=== PATIENT | female | born 1940 | race Caucasian/White ===

== ENCOUNTER → 2023-08-10 15:39 | Outpatient (REF) | payer OTHER, SELFPAY | LOC: PAVMRI 15:39 | PROVIDERS: ATTENDING PHYSICIAN Student in an Organized Health Care Education/Training Program; FAMILY PHYSICIAN Nurse Practitioner Adult Health | DX: R41.3 Other amnesia (principal) | CPT/HCPCS: 70551 ==

== ENCOUNTER 2023-10-06 06:10 | Outpatient (RCR) | payer OTHER, SELFPAY | END 2023-10-06 23:59 | disposition home or self-care (01) | LOC: RST 06:10 | PROVIDERS: ATTENDING PHYSICIAN Psychiatry & Neurology Neurology; FAMILY PHYSICIAN Nurse Practitioner Adult Health | DX: I69.318 Other symptoms and signs involving cognitive functions following cerebral infarction (principal) | CPT/HCPCS: 96125 ==

== ENCOUNTER 2024-01-09 14:05 | Observation (INO) | payer OTHER, SELFPAY ==
[2024-01-09] VITALS (10 sets, daily range): BP systolic 141–162; BP diastolic 45–91; BMI 28.7; BMI 28.4
--- NOTE | 2024-01-09 10:13 | ED.MUSCINJ ---
HPI-Injury
General
Chief Complaint: Musculo-Skeletal Complaint
Time Seen by Provider: 01/09/24 09:26
History of Present Illness-Injury
Initial Injury comments:
Patient presents the emergency department for left knee pain. Twisted while moving a mattress last night. Went to sleep and after waking up today she was unable to stand. Complains of severe pain in the left knee and swelling. There is no
injuries elsewhere. Patient is typically ambulatory without any assistance. She is unable to ambulate
Past History
Past History
ED Past Medical History: HTN and NIDDM
ED Past Surgical History: None
Social History
Personal:
Living: with family
Phy Exam
Physical Exam
Physical Exam:
GENERAL APPEARANCE: NAD, well developed/ well nourished
EYES lids/conjunctiva normal
EARS/NOSE/THROAT Mucous membranes moist, uvula midline without oral pharyngeal erythema, exudate or swelling
HEAD/NECK normocephalic atraumatic, neck is supple.
RESPIRATORY respiratory effort normal, speaks in full sentences, no accessory muscle use. Lungs clear to auscultation without rhonchi, wheezes, rales
CARDIAC Regular rate and rhythm, no edema.
ABDOMINAL Soft, ND/NT.
MUSCLES/EXTREMITIES there is diffuse swelling around the left knee. She has limited range of motion secondary to pain. She is able to straight leg raise slightly. She has full strength in plantar and dorsiflexion. There is a joint effusion.
Francisca testing is negative drawer testing negative.
SKIN Warm, pink and dry. No rashes
NEUROLOGICAL Speech is clear and appropriate. Normal level of consciousness. 5/5 strength in all extremities.
PSYCH Normal mood and affect. Judgement/competence is appropriate
Injury Course
Orders/Labs/Results
Orders:
Orders
01/09/24 10:07
IV Insert/Care/Rem.- Treatment PRN
CR Knee - Left 4 Or More View* Urgent
Comment:
Reason For Exam: pain, swelling, unable to bear wt on knee.
01/09/24 10:12
Acetaminophen [Tylenol] 1,000 mg PO NOW STA
Ondansetron Injectable [Zofran] 4 mg IV NOW STA
01/09/24 10:16
Complete Blood Count/With Diff Urgent
Comprehensive Metabolic Panel Urgent
01/09/24 13:44
Admit/Transfer Patient As Directed
Co-Sign Provider:
Level of Care: Observation services
Assign to:: Medical/Surgical
Physician / Group: morelia
Diagnosis: left knee swelling
PRN Pain Medication Management As Directed
May give lesser potent ordered pain med per pt: Yes
preference::
Protocol:: Medication orders for pain may be administered in a
manner that supports deferring to patient preference
when the pt is:
- Requesting an ordered lesser potent pain medication.
Least to most potent pain medications are defined
as: acetaminophen < NSAID < tramadol < opioids
(morphine, oxycodone, hydromorphone).
- Requesting a lesser dose of the same medication IF
ORDERED.
- Requesting a less intrusive route of administration
if both routes are prescribed by the provider (PO <
IV).
01/09/24 13:45
Code Status As Directed
Resuscitation Status: Full Code
01/09/24 Dinner
Regular
At Your Request: Full Participation
01/09/24 15:13
Acetaminophen [Tylenol] 650 mg PO Q4HPRN PRN
Tramadol HCl [Ultram] 50 mg PO Q6HPRN PRN
01/09/24 15:13
MR Left Knee Without Routine
Comment:
Reason For Exam: fall, knee swelling on pradaxa
Recent pill cam endoscopy?: No
Activity As Directed
Activity Level: As Tolerated
Pneumatic Compression Sleeves As Directed
Type: Knee high
Vital Signs As Directed
Frequency: Per unit guidelines
Ot Eval And Treat Routine
Pt Eval And Treat Routine
Activity Level: As Tolerated
DX Deep Vein Thrombosis Video Routine
01/09/24 18:00
Atorvastatin [Lipitor] 20 mg PO QPM
01/09/24 20:00
GlipiZIDE [Glucotrol] 2.5 mg PO BID
01/10/24 06:00
Complete Blood Count/With Diff IN AM
Comprehensive Metabolic Panel IN AM
01/10/24 08:00
Duloxetine Delayed Release [Cymbalta Delayed Release] 30 mg PO DAILY
Multivitamin [Theragran] 0.5 tablet PO DAILY
Abnormal Lab Results
01/09/24
10:16
WBC 13.8 H 10^3/uL
(4.8-10.8)
MPV 11.2 H fL
(7.4-10.4)
Abs Immat Gran (auto) 0.1 H 10^3/uL
(0-0.05)
Absolute Neuts (auto) 11.3 H 10^3/uL
(1.4-6.5)
Absolute Monos (auto) 1.2 H 10^3/uL
(0.1-0.6)
Neutrophils % 81.3 H %
(42.2-75.2)
Lymphocytes % 8.4 L %
(20.5-51.1)
Glucose 238 H mg/dl
(70-99)
Total Bilirubin 1.5 H mg/dl
(0.2-1.3)
AST 48 H U/L
(14-36)
ALT 41 H U/L
(0-35)
01/09/24 10:16
01/09/24 10:16
*Critical Care Note
Total Time (30-74mins, 75-104mins- exclusive of procedures): Not Applicable
ED Attending Note
ED Attending Note
ED Attending Note:
twisting injury to L knee
vascularly intact, limited motor exam with pain
no gross instability
knee is very swollen and painful with any range of motion
prelim xray negative, awaiting final read
regardless, she is unable to ambulate, will need pain control, PT, possible placement to rehab
-
Portions of this chart may have been created with voice recognition software.� Occasional wrong word or��sound alike� substitutions may have occurred due to the inherent limitations of voice recognition software.
Discharge Plan
Departure
Patient Disposition: Admit
Date of Disposition: 01/09/24
Time of Disposition: 13:27
Presentation/result/management discussed w/ accepting MD/DO: Hospitalist
Discharge Problem:
Acute knee pain
Interventions
Interventions:
*Risk Screen - Suicide Last Done: 01/09/24 09:31
*General Assessment Last Done: 01/09/24 09:31
*Neglect/Abuse Screening Last Done: 01/09/24 09:31
ED- Fall Risk Assessment Last Done: 01/09/24 10:29
*ED COVID-19 Vaccine History Last Done: 01/09/24 09:31
*Nursing Disposition Last Done: 01/09/24 15:10
ED-Musculoskeletal Assessment Last Done: 01/09/24 10:28
Discharge Date and Time
Discharge Date/Time: 01/09/24 15:10
[2024-01-09] MEDS: TYLENOL 1000 MG PO (10:21)
[2024-01-09] MEDS: ZOFRAN 4 MG IV (10:22)
[2024-01-09 10:28] LABS: % Basophils 0.8 % (0-2); % Eosinophils 0.6 % (0-6); % Immature Granulocytes 0.4 % (0-0.5); % Lymphocytes 8.4 % (20.5-51.1); % Monocytes 8.5 % (1.7-9.3); % Neutrophils 81.3 % (42.2-75.2); Absolute Basophils 0.1 10^3/uL (0-0.2); Absolute Eosinophils 0.1 10^3/uL (0-0.7); Absolute Immature Granulocytes 0.1 10^3/uL (0-0.05); Absolute Lymphocytes 1.2 10^3/uL (1.2-3.4); Absolute Monocytes 1.2 10^3/uL (0.1-0.6); Absolute Neutrophils 11.3 10^3/uL (1.4-6.5); Hematocrit 44.8 % (37.0-47.0); Hemoglobin 15.6 g/dL (12.0-16.0); Mean Corp Hgb Conc. 34.8 g/dL (33.0-37.0); Mean Corpuscular Hgb 30.9 pg (27.0-31.0); Mean Corpuscular Volume 88.7 fL (81.0-99.0); Mean Platelet Volume 11.2 fL (7.4-10.4); Nucleated Red Blood Cells % 0 %; Platelet Count 167 10^3/uL (130-400); Red Blood Cell Count 5.05 10^6/uL (4.20-5.40); Red Cell Dist. Width 12.9 % (11.5-14.5); White Blood Cell Count 13.8 10^3/uL (4.8-10.8)
[2024-01-09 10:46] LABS: ALT (SGPT) 41 U/L (0-35); AST (SGOT) 48 U/L (14-36); Albumin 4.1 g/dl (3.5-5.0); Alkaline Phosphatase 99 U/L (38-126); Blood Urea Nitrogen 13 mg/dl (7-17); Calcium 9.4 mg/dl (8.4-10.2); Carbon Dioxide 27 mmol/L (22-30); Chloride 101 mmol/L (98-107); Estimated Creatinine Clearance 57 ml/min; Glucose 238 mg/dl (70-99); Potassium 3.6 mmol/L (3.5-5.1); Sodium 140 mmol/L (135-145); Total Bilirubin 1.5 mg/dl (0.2-1.3); Total Protein 6.7 g/dl (6.3-8.2); eGFR > 60.00
--- NOTE | 2024-01-09 12:40 | EDRN ---
Dr. Randolph pt not to eat prior to getting the radiologist xray reading on her knee. Pt was informed.
--- NOTE | 2024-01-09 13:33 | EDRN ---
Pt states her knee pain is unchanged and she does not w/ that pain believe she can walk.
--- NOTE | 2024-01-09 13:36 | EDRN ---
Dr. Samayoa in room w/ pt at this time.
--- NOTE | 2024-01-09 13:48 | HPS.HSE ---
Family Physician
-
Family Physician: Aisha Alcantar
Chief Complaint
-
left knee swelling
History of Present Illness
83-year-old female past medical history of paroxysmal atrial fibrillation, obstructive sleep apnea, CVA, hypertension, type 2 diabetes, anxiety/depression, presenting with left knee pain. She twisted her leg while moving a mattress last night. She
went to sleep and after waking up today she was unable to stand. Complains of severe pain in the left knee with swelling.
Patient does not smoke or drink alcohol.
Medical History
Past Medical History
Past Medical History: Reports Other (paroxysmal atrial fibrillation, obstructive sleep apnea, CVA, hypertension, type 2 diabetes, anxiety/depression)
Past Surgical History: Reports None
Social History
Tobacco: Non-smoker
Alcohol: None
Family History
Family History: Not pertinent
Allergies / Home Medications
Allergies reflects when Allergies were last updated in [facility].
Home Medications with original date entered in [facility]
Allergy/Medication List:
Allergies
Allergy/AdvReac Type Severity Reaction Status Date / Time
No Known Allergies Allergy Unverified 01/09/24 10:30
Home Medications
multivitamin 0.5 ea PO DAILY 03/29/21
atorvastatin 20 mg tablet 20 mg PO QPM 01/09/24
dabigatran etexilate 150 mg capsule (Pradaxa) 150 mg PO BID 01/09/24
duloxetine 30 mg capsule,delayed release 30 mg PO DAILY 01/09/24
glipizide 5 mg tablet 2.5 mg PO BID 01/09/24
Review of Systems
-
History Source: Patient
A 12 point ROS was completed and negative except as noted: Yes
Constitutional: Reports No Symptoms
EENT: Reports No Symptoms
Respiratory: Reports No Symptoms
Cardiac: Reports No Symptoms
Abdomen/GI: Reports No Symptoms
: Reports No Symptoms
Musculoskeletal: Reports See HPI
Skin: Reports No Symptoms
Neurological: Reports No Symptoms
Endocrine: Reports No Symptoms
Hematologic/Lymphatic: Reports No Symptoms
Psych: Reports No Symptoms
Physical Exam
Vital Signs
Vital Signs
Temp Pulse Resp BP Pulse Ox
98.1 F 84 16 141/65 94
01/09/24 09:34 01/09/24 13:00 01/09/24 13:00 01/09/24 13:00 01/09/24 13:00
Physical Exam
General: Well Developed, Well Nourished and No Apparent Distress
HEENT: NormoCephalic, Moist mucous membranes and Atraumatic
Respiratory: Clear
Cardiac: S1/S2 and Regular Rhythm; No Murmur or Rub
GI: Soft, Non Tender, Non Distended and Normal Bowel Sounds; No Organomegaly
Rectal: Deferred by Provider
Musculoskeletal: No Clubbing, No Cyanosis, No Edema and Other (left knee swelling and tenderness )
Skin: No Rash
Neuro: Nonfocal/grossly intact
Laboratory Results
-
01/09/24 10:16
01/09/24 10:16
Laboratory Results
Total Bilirubin 1.5 mg/dl (0.2-1.3) H 01/09/24 10:16
AST 48 U/L (14-36) H 01/09/24 10:16
ALT 41 U/L (0-35) H 01/09/24 10:16
Alkaline Phosphatase 99 U/L (38-126) 01/09/24 10:16
Data Reviewed
-
Lab Data: Labs Reviewed by me
Old Records: Reviewed
Impression/Plan
-
IMPRESSION:
PLAN:
# Left knee swelling/pain after fall most likely knee sprain versus meniscal/ligament tear versus hematoma given Pradaxa use
-Knee x-ray pending
-Tylenol, tramadol as needed for pain
-Will likely require MRI of knee depending on x-ray result
-PT/OT
-Hold Pradaxa for now given potential for hematoma
Paroxysmal atrial fibrillation
-Continue Pradaxa
Obstructive sleep apnea
History of CVA
-Continue statin
Essential hypertension
Type 2 diabetes
-Continue glipizide
Anxiety/depression
-Continue duloxetine
Full code
DVT prophylaxis�SCDs
Regular diet
--- NOTE | 2024-01-09 15:25 | PTCARENOTE ---
Received pt from ED via stretcher. Pt pulled over to bed with assist x3. Pt c/o pain throughout L knee when reposition, expresses no need for pain medication at this time. AAOX3. MINTO. Family at beside. Assessed and oriented to room. Pt verbalized
understanding of call gonzalez. Call gonzalez within close reach. Will continue to monitor.
[2024-01-09] MEDS: LIPITOR 20 MG PO (17:21)
[2024-01-09] MEDS: TYLENOL 650 MG PO (17:21)
[2024-01-09] MEDS: GLUCOTROL 2.5 MG PO (20:59)
[2024-01-10] MEDS: TYLENOL 650 MG PO (02:32)
[2024-01-10 07:39] LABS: % Basophils 0.7 % (0-2); % Eosinophils 0.4 % (0-6); % Immature Granulocytes 0.5 % (0-0.5); % Lymphocytes 9.1 % (20.5-51.1); % Monocytes 14.9 % (1.7-9.3); % Neutrophils 74.4 % (42.2-75.2); Absolute Basophils 0.1 10^3/uL (0-0.2); Absolute Eosinophils 0.1 10^3/uL (0-0.7); Absolute Immature Granulocytes 0.1 10^3/uL (0-0.05); Absolute Lymphocytes 1.1 10^3/uL (1.2-3.4); Absolute Monocytes 1.8 10^3/uL (0.1-0.6); Absolute Neutrophils 9.1 10^3/uL (1.4-6.5); Hematocrit 45.1 % (37.0-47.0); Hemoglobin 14.8 g/dL (12.0-16.0); Mean Corp Hgb Conc. 32.8 g/dL (33.0-37.0); Mean Corpuscular Hgb 30.3 pg (27.0-31.0); Mean Corpuscular Volume 92.2 fL (81.0-99.0); Mean Platelet Volume 11.2 fL (7.4-10.4); Nucleated Red Blood Cells % 0 %; Platelet Count 163 10^3/uL (130-400); Red Blood Cell Count 4.89 10^6/uL (4.20-5.40); White Blood Cell Count 12.2 10^3/uL (4.8-10.8)
[2024-01-10 07:45] VITALS: BP 172/86
[2024-01-10 07:49] LABS: ALT (SGPT) 47 U/L (0-35); AST (SGOT) 50 U/L (14-36); Albumin 3.8 g/dl (3.5-5.0); Alkaline Phosphatase 86 U/L (38-126); Blood Urea Nitrogen 14 mg/dl (7-17); Calcium 9.2 mg/dl (8.4-10.2); Carbon Dioxide 32 mmol/L (22-30); Chloride 99 mmol/L (98-107); Estimated Creatinine Clearance 57 ml/min; Glucose 264 mg/dl (70-99); Potassium 3.5 mmol/L (3.5-5.1); Sodium 139 mmol/L (135-145); Total Bilirubin 1.9 mg/dl (0.2-1.3); Total Protein 6.4 g/dl (6.3-8.2); eGFR > 60.00
[2024-01-10] MEDS: THERAGRAN 0.5 TABLET PO (08:41)
[2024-01-10] MEDS: GLUCOTROL 2.5 MG PO (08:41)
[2024-01-10] MEDS: ULTRAM 50 MG PO ×2 (08:41→22:21)
[2024-01-10] MEDS: CYMBALTA DELAYED RELEASE 30 MG PO (08:44)
--- NOTE | 2024-01-10 09:26 | W.PN.HOSP.TC ---
Today's Communication/Plan
-
ortho consult
Assessment / Plan
Assessment / Plan
# Left knee swelling/pain after fall/twist injury most likely knee sprain versus meniscal/ligament tear versus hematoma given Pradaxa use
-Knee x-ray: Moderate medial compartment and mild patellofemoral joint osteoarthritis.
No acute fracture identified.
Bony demineralization. Stable
-Tylenol, tramadol as needed for pain
-Will require MRI of knee
ordered and is pending
-PT/OT
pt is in considerable pain, will request ortho eval, discussed case with Dr. Rico
-Hold Pradaxa for now given potential for hematoma
Paroxysmal atrial fibrillation
-holding Pradaxa
Obstructive sleep apnea
History of CVA
-Continue statin
Essential hypertension
Type 2 diabetes
-Continue glipizide
Anxiety/depression
-Continue duloxetine
Full code
DVT prophylaxis�SCDs
Regular diet
Pt resides at [facility], will need to contact CM once dx and plans put in place
Anticipated Discharge: 24 - 48 hours
Subjective/Interval History
-
Date of Service: January 10, 2024
Still with significant left knee pain
Objective Data
-
Labs:
Laboratory Results
01/10/24
07:02
WBC 12.2 H
Hgb 14.8
Hct 45.1
Plt Count 163
Sodium 139
Potassium 3.5
Chloride 99
Carbon Dioxide 32 H
BUN 14
Creatinine 0.7
Glucose 264 H
Calcium 9.2
Total Bilirubin 1.9 H
AST 50 H
ALT 47 H
Alkaline Phosphatase 86
Vital Signs:
Vital Signs
Temp Pulse Resp BP Pulse Ox
97.7 F 83 18 172/86 93
01/10/24 07:45 01/10/24 07:45 01/10/24 07:45 01/10/24 07:45 01/10/24 07:45
I&O
01/09/24 01/10/24 01/11/24
06:59 06:59 06:59
Intake Total 480 / 480
Balance 480 / 480
Review of Systems
-
Unable to obtain full review of systems at this time due to: Dementia (mild)
History Source: Patient and Coordinated Provider
Constitutional: Denies Fever
EENT: Reports No Symptoms Reported
Respiratory: Reports No Symptoms
Cardiac: Reports No Symptoms
Abdomen/GI: Reports No Symptoms
Musculoskeletal: Reports Joint Pain (left knee) and Joint Swelling
Physical Exam
-
General: Well Developed, Well Nourished, No Apparent Distress and Appears Chronically Ill
HEENT: Normocephalic, Atraumatic and Moist Mucous Membranes
Respiratory: Clear to Auscultation; Negative Wheezes, Rales or Rhonchi
Cardiac: Regular Rhythm and S1/S2
GI: Soft, Nontender and Nondistended
Musculoskeletal: Other (left knee swollen, warm and very tender)
Neuro: Awake and Alert
--- NOTE | 2024-01-10 10:37 | CON.ORTHO ---
Consultation - Orthopedics
History
HPI: 83-year-old female community ambulator presented to the emergency department status post twisting injury to the left knee. She was admitted for ambulatory dysfunction. Orthopedics was consulted for further evaluation and treatment. This
morning family is at bedside. She reports that she was changing her sheets in her room when she twisted her knee on Thursday. She noted some pain at that time that progressively worsened the following day. She reports that Thursday she woke up and
had significant pain and swelling and really was unable to bear weight. She called her daughter who brought her to the emergency department. Today patient reports diffuse pain to the left knee. Pain is made worse with direct palpation at affected
area and with attempted ambulation. She reports that she does live independently in an independent living facility. She does take Pradaxa for A-fib. She reports that she had a stroke 3 years ago.
Allergies / Home Medications
Past medical history: A-fib, obstructive sleep apnea, CVA, hypertension, type 2 diabetes
Past surgical history: None reported
Social history: Lives alone at home, non-smoker
Family history: Not pertinent
Allergy/AdvReac Type Severity Reaction Status Date / Time
No Known Allergies Allergy Unverified 01/09/24 10:30
�Medication �Instructions �Recorded
multivitamin 0.5 ea PO DAILY Supplement 03/29/21
atorvastatin 20 mg tablet 20 mg PO QPM High Cholesterol 01/09/24
dabigatran etexilate 150 mg 150 mg PO BID Blood Clot 01/09/24
capsule (Pradaxa) Prevention/Tx
duloxetine 30 mg capsule,delayed 30 mg PO DAILY Mental 01/09/24
release Health/Anxiety
glipizide 5 mg tablet 2.5 mg PO BID Diabetes 01/09/24
Vital Signs / Lab Results
Temp Pulse Resp BP Pulse Ox
97.7 F 83 18 172/86 93
01/10/24 07:45 01/10/24 07:45 01/10/24 07:45 01/10/24 07:45 01/10/24 07:45
01/10/24 07:02
01/10/24 07:02
10 point review systems reviewed and negative unless otherwise stated
General: Pleasant, no acute distress at rest while in bed
Musculoskeletal left lower extremity
Skin intact, no erythema or ecchymotic staining noted
There is a large palpable knee effusion
Limited range of motion secondary to pain and swelling
Fairly mild tenderness palpation suprapatellar region medial lateral joint line
There is no discrete tenderness palpation popliteal fossa hamstring tendon insertions
Positive EHL, FHL, ankle dorsiflexion, plantarflexion
Brisk cap refill
Diagnostic studies
X-rays left knee obtained show fairly moderate medial joint space narrowing more mild patellofemoral joint space narrowing. No fractures identified.
Procedure
Left knee aspiration
Risks and benefits of procedure were discussed at length with patient verbal consent was obtained. Utilizing superolateral approach to the knee, skin was marked include alcohol. An 18-gauge needle was then inserted into the suprapatellar pouch.
Approximately 50 cc of essentially bri blood/hemarthrosis was aspirated. Band-Aid was applied. Patient's knee was wrapped with Damien bandage. Patient tolerated procedure well.
Assessment / Plan
83-year-old female status post twisting injury left knee with associated hemarthrosis. I had a long discussion with the patient as well as family at bedside. I do suspect this is likely related to her Pradaxa use more of an spontaneous
hemarthrosis type picture. Certainly she could have other potential acute internal derangement of the knee potentially also a small intra-articular fracture not visualized on x-ray. We discussed treatment options. Explained to them that fluid
may reaccumulate but this did provide us with some diagnostic value. There are plans obtain an MRI of the left knee. Will plan to follow-up MRI. I think really the only change in recommendations for an MRI would potentially be changing
weightbearing status if there is a fracture identified. Otherwise would recommend compression ice and elevation.. Could consider bracing as well for additional support to aid in ambulation. Will follow up MRI. Please reach out with questions or
concerns.
--- NOTE | 2024-01-10 10:45 | CM ---
CM following re: discharge planning.
Reviewed pt's chart, met with pt.
Pt is an 83 year old female, admitted with OBS status and primary dx of Left Knee swelling. OBS status reviewed with the pt, GILL letter signed, placed on chart, pt has a copy.
Pt reports he has been living in an independent apartment at [facility] for the past 3 years, has 2 supportive living children, one daughter . Emotional support offered and provided.
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 Pt stated she does not know how she will ambulate now because of her knee.
PT and OT will evaluate the pt to determine a level of care at discharge.
PCP: Aisha Alcantar
Pharmacy: [facility]
D/C plan: uncertain at this time and will depend on pt's progress. Will follow PT/OT recommendations.
CM will follow with discharge plan updates as hospitalization progresses
--- NOTE | 2024-01-10 10:57 | PTCARENOTE ---
Her Bp this am was 172/86 with severe pain. I gave her tramadol and her bp now is 154/85 with moderate pain. Md made aware, with a request for Bp and improved pain management. Also PT's hands appeared slightly blue, warm with excellent pulses. t
pulse ox. she ranged 88-90% so i put her on 2 liters. She has decreased BS and last nurse said she was ROSAIRO with some activity.2 liters of oxygen applied 94-95% on 2 liters. Pt had bedside aspiration 52 ml bloody aspirate. This nurse assisted
ortho surgery with bedside aspiration. Left knee was +2-3 swollen and now is +1, PT is on pradexa at home and is on hold here. Daughere is at bedside
[2024-01-10 11:19] VITALS: BP 154/84
[2024-01-10 12:19] VITALS: BP 139/73
--- NOTE | 2024-01-10 13:56 | PTCARENOTE ---
pt went to MRI. will await her return. MD banuelos
--- NOTE | 2024-01-10 14:06 | PTCARENOTE ---
when transfering pt onto stretcher for MRI oxygen was off and pt mental status slighlty confused and cyanotic appearance came back. lungs coarse in miley lower lobes with LLL expiratory wheeze, pt with systolic murmur, Oxygen reapplied and confusion
and color improved. aware and ordered CXR. PT to go to CXR after MRI. MRI and radiology called and aware.
[2024-01-10 15:30] VITALS: BP 134/72
[2024-01-10] MEDS: LIPITOR 20 MG PO (16:56)
[2024-01-10] MEDS: GLUCOTROL PO (21:28)
[2024-01-10 22:31] VITALS: BP 139/93
[2024-01-11 06:00] VITALS: BMI 28.3
[2024-01-11 07:30] VITALS: BP 131/66
[2024-01-11] MEDS: THERAGRAN 0.5 TABLET PO (08:17)
[2024-01-11] MEDS: GLUCOTROL 2.5 MG PO ×2 (08:17→19:55)
[2024-01-11] MEDS: CYMBALTA DELAYED RELEASE 30 MG PO (08:18)
[2024-01-11 10:38] VITALS: BP 131/61; BP 145/81; PULSE 75; O2SAT 96
[2024-01-11 10:41] VITALS: BP 131/61; BP 135/81; PULSE 75; O2SAT 96
[2024-01-11] MEDS: TYLENOL 650 MG PO (11:32)
--- NOTE | 2024-01-11 11:32 | W.PN.HOSP.TC ---
Today's Communication/Plan
-
await placement
pain control
Assessment / Plan
Assessment / Plan
# Left knee swelling/pain after fall/twist injury most likely knee sprain versus meniscal/ligament tear versus hematoma given Pradaxa use
-Knee x-ray: Moderate medial compartment and mild patellofemoral joint osteoarthritis.
No acute fracture identified.
Bony demineralization. Stable
-Tylenol, tramadol as needed for pain
-MRI No evidence for fracture. No significant bone bruise is identified. Muscular strain involving the distal vastus lateralis small linear foci of increased proton-density signal within the distal muscle fibers. There is edema medial to the distal
aspect of the vastus medialis, and is likely from a mild grade 1 muscular strain.
Mild edema along the anterior margin of the medial and lateral heads of the gastrocnemius muscles, which also likely represents mild grade 1 muscular strains. No evidence for medial or lateral meniscal tear. The anterior and posterior cruciate
ligaments appear within normal limits. Moderate to large joint effusion. Irregular decreased T2-weighted signal within the effusion, which could represent synovitis and/or debris. Moderate-sized Liang's cyst. Mild to moderate diffuse subcutaneous
edema.
-s/p arthocentesis-blood noted by orthopedic
-await further orthopedic recs. Discussed with Dr. Zaid Rico who recommended patient to follow-up with her primary furniture inspector to discuss further usage of DOAC. WBAT.
Paroxysmal atrial fibrillation
-holding Pradaxa. Plan as above.
Obstructive sleep apnea
History of CVA
-Continue statin
Essential hypertension
Type 2 diabetes
-Continue glipizide
Anxiety/depression
-Continue duloxetine
Full code
DVT prophylaxis�SCDs
d/w with daughter at bedside in details
PT/OT-SNF vs. Home PT. CM aware.
Anticipated Discharge: Today
Subjective/Interval History
-
Date of Service: January 11, 2024
working with PT
able to bear weight with assistance
Objective Data
-
Vital Signs:
Vital Signs
Temp Pulse Resp BP Pulse Ox
97.6 F 72 18 131/66 96
01/11/24 07:30 01/11/24 07:30 01/11/24 07:30 01/11/24 07:30 01/11/24 07:30
I&O
01/10/24 01/11/24 01/12/24
06:59 06:59 06:59
Intake Total 480 / 480 900 / 900
Balance 480 / 480 900 / 900
Physical Exam
-
General: No Apparent Distress
HEENT: Normocephalic, Atraumatic and Moist Mucous Membranes
Respiratory: Non Labored Respirations; Negative Accessory Resp Muscle Use
GI: Nondistended
Musculoskeletal: Other (Left knee swollen)
Skin: Warm
Neuro: Awake, No Motor Deficits and Nonfocal/Grossly Intact; Negative Tremors, Slurred Speech or Facial Droop
Psych: Calm
--- NOTE | 2024-01-11 12:20 | W.PN.UPDATE ---
Update Note
Progress Note Update
Reviewed MRI. No fractures or significant acute injury identified. Would recommend WBAT to left lower extremity, PT eval, pain control. Likely spontaneous hemarthrosis related to anticoagulation. Can follow up outpatient for repeat eval in 2-3
weeks. Discussed at length with patient and daughter yesterday.
[2024-01-11 16:00] VITALS: BP 127/68
--- NOTE | 2024-01-11 16:48 | CM ---
Addendum entered by MILAGROS Gray 01/14/24 15:37:
Placed a call to [facility] to discuss which VN agencies they can contract with. Spoke with nursing staffing coordinator who stated that as patient is from Independent living she can choose any agency, not just an agency with whom they have a contract. Spoke
with patient and her daughter who stated that they would rather have VN than the two that are offered in the community.
Referral made to VN. Spoke with Candy low for to make referral.
Original Note:
Received notification from attending that patient is medically cleared for discharge. Reviewed PT. Met with patient's daughter who was at bedside. Patient's daughter stated that she will be staying at [facility] with patient in her apartment. She would
also like VN through [place]. Will make referral. She also stated that she will hire private aides. Discussed with attending who is in agreement with plan. Will make VN referral. Attending stated that patient should be medically stable to transfer back
in the am.
Concerns about PT were relayed to patient's daughter and she stated that she was aware of risk but that patient will never be left unsupervised.
Plan: Case management will continue to follow and assist with discharge planning. Home/back to [facility] with her daughter, VN and caregivers until she is closer to baseline.
[2024-01-11] MEDS: LIPITOR 20 MG PO (17:27)
[2024-01-11 23:18] VITALS: BP 133/66
[2024-01-12 06:00] VITALS: BMI 28.6
[2024-01-12 08:04] VITALS: BP 178/77
[2024-01-12] MEDS: CYMBALTA DELAYED RELEASE 30 MG PO (08:31)
[2024-01-12] MEDS: GLUCOTROL 2.5 MG PO (08:31)
[2024-01-12] MEDS: THERAGRAN 0.5 TABLET PO (08:31)
--- NOTE | 2024-01-12 10:39 | W.PN.HOSP.TC ---
Today's Communication/Plan
-
Op ortho f/u
wbat
Assessment / Plan
Assessment / Plan
# Left knee swelling/pain after fall/twist injury most likely knee sprain versus meniscal/ligament tear versus hematoma given Pradaxa use
-Knee x-ray: Moderate medial compartment and mild patellofemoral joint osteoarthritis.
No acute fracture identified.
Bony demineralization. Stable
-Tylenol, tramadol as needed for pain
-MRI No evidence for fracture. No significant bone bruise is identified. Muscular strain involving the distal vastus lateralis small linear foci of increased proton-density signal within the distal muscle fibers. There is edema medial to the distal
aspect of the vastus medialis, and is likely from a mild grade 1 muscular strain.
Mild edema along the anterior margin of the medial and lateral heads of the gastrocnemius muscles, which also likely represents mild grade 1 muscular strains. No evidence for medial or lateral meniscal tear. The anterior and posterior cruciate
ligaments appear within normal limits. Moderate to large joint effusion. Irregular decreased T2-weighted signal within the effusion, which could represent synovitis and/or debris. Moderate-sized Liang's cyst. Mild to moderate diffuse subcutaneous
edema.
-s/p arthocentesis-blood noted by orthopedic
- Discussed with Dr. Zaid Rico who recommended patient to follow-up with her primary repairer helper to discuss further usage of DOAC. WBAT. This was discussed with patient daughter who verbalized understanding to follow-up with cardiology.
Daughter leaning towards stopping DOAC. Daughter understand risk of CVA versus benefit of further progression of hemarthrosis.
Paroxysmal atrial fibrillation
-holding Pradaxa. Plan as above.
Obstructive sleep apnea
History of CVA
-Continue statin
Essential hypertension
Type 2 diabetes
-Continue glipizide
Anxiety/depression
-Continue duloxetine
Full code
DVT prophylaxis�SCDs
d/w with daughter at bedside in details
PT/OT-back to [facility] . Daughter prefers for patient to return to her previous living situation. Daughter to stay with the patient.
More than 30 minutes spent in discharge including
Final examination of the patient
Summarizing hospital stay
Instructions for continuing care to all relevant caregivers
Preparation of discharge records, prescriptions, and referral forms
Total time spent (in minutes): 52
Anticipated Discharge: Today
Subjective/Interval History
-
Date of Service: January 12, 2024
remains with intermittent left knee pain
able to get out of bed
Objective Data
-
Vital Signs:
Vital Signs
Temp Pulse Resp BP Pulse Ox
97.7 F 71 17 178/77 95
01/12/24 08:04 01/12/24 08:04 01/12/24 08:04 01/12/24 08:04 01/12/24 08:04
I&O
01/11/24 01/12/24 01/13/24
06:59 06:59 06:59
Intake Total 900 / 900 1080 / 1080
Balance 900 / 900 1080 / 1080
Physical Exam
-
General: No Apparent Distress
HEENT: Normocephalic, Atraumatic and Moist Mucous Membranes
Respiratory: Non Labored Respirations; Negative Accessory Resp Muscle Use
GI: Nondistended
Musculoskeletal: Other (Left knee swollen)
Skin: Warm
Neuro: Awake, No Motor Deficits and Nonfocal/Grossly Intact; Negative Tremors, Slurred Speech or Facial Droop
Psych: Calm and Confused
--- NOTE | 2024-01-12 10:42 | W.DCSUMMARY ---
Discharge Summary
Discharge Data
Date of Admission: 01/09/24
Date of Discharge: 01/12/24
-
Pending Results: No
Hospital Course
83-year-old female past medical history of atrial fibrillation, DEMETRI, history of CVA, hypertension, diabetes mellitus, anxiety, depression was presented with left knee pain and swelling. Patient stated of significant pain after twisting her left
knee. Underwent left knee x-ray which showed moderate medial compartment and mild patellofemoral joint osteoarthritis. No acute fractures was identified. Patient underwent MRI No evidence for fracture. No significant bone bruise is identified.
Muscular strain involving the distal vastus lateralis small linear foci of increased proton-density signal within the distal muscle fibers. There is edema medial to the distal aspect of the vastus medialis, and is likely from a mild grade 1 muscular
strain. Mild edema along the anterior margin of the medial and lateral heads of the gastrocnemius muscles, which also likely represents mild grade 1 muscular strains. No evidence for medial or lateral meniscal tear. The anterior and posterior
cruciate ligaments appear within normal limits. Moderate to large joint effusion. Irregular decreased T2-weighted signal within the effusion, which could represent synovitis and/or debris. Moderate-sized Liang's cyst. Mild to moderate diffuse
subcutaneous edema. Pradaxa was held as there was concern for hemarthrosis. Patient underwent arthrocentesis by orthopedic where blood was noted. Orthopedic recommend to hold Pradaxa and to follow-up outpatient with cardiology. This was relayed
to patient daughter who verbalized understanding. Patient was eval by physical and Occupational Therapy and recommended skilled level of care. Patient daughter did not want patient to undergo to skilled level of care and recommended return to
previous living situation. Daughter stated patient with confusion when she is in a new environement. Visiting nurses were ordered. Recommended ice pack elevation and weightbearing as tolerated.
Discharge Plan
-
Patient Disposition: Assisted Living
Discharge Diagnosis/Procedures: Hemarthrosis likely exacerbated by Pradaxa status post arthrocentesis
Condition: Fair
Diet: As tolerated
Activity: With assistance and As tolerated
Driving Restrictions: No driving
Other Services: VN
Referrals:
Aisha Alcantar CRNP [Family Provider] - in less than 1 week
Zaid Rico MD [Active] - in two to three weeks
Prescriptions:
New
acetaminophen 325 mg Tablet
650 mg PO Q4HPRN PRN (Reason: mild pain) 14 Days Qty: 30 0RF
tramadol 50 mg Tablet
50 mg PO BIDPRN PRN (Reason: SEVERE PAIN) 3 Days Qty: 6 0RF
Continued
multivitamin 1 EACH tablet
0.5 ea PO DAILY
atorvastatin 20 mg Tablet
20 mg PO QPM
duloxetine 30 mg Capsule,Delayed Release(Dr/Ec)
30 mg PO DAILY
glipizide 5 mg Tablet
2.5 mg PO BID
Held
dabigatran etexilate [Pradaxa] 150 mg Capsule
150 mg PO BID
Hold Instructions: Resume on 02/01/24. Hold till seen by cardiology
Discharge Orders:
Discharge Patient (As Directed); Ordered 01/12/24
Ordered By: Chuy Palomino
Discharge Date and Time
Discharge Date/Time: 01/12/24 13:50
Print Language: LATVIAN
--- NOTE | 2024-01-12 12:31 | VNURNOTE ---
Home Health Liaison spoke with patient's daughter to discuss [facility] nurse/therapy, visits, schedule and homebound status. Daughter is agreeable and understands that visits at home will be 2-3 x per week to assess and teach medical management. Daughter
is aware that [facility] will contact them for start of care in 1-2 days after discharge from .
[facility] referral completed in [facility].
[2024-01-12 12:49] VITALS: BP 149/76; PULSE 68; O2SAT 96
== END 2024-01-12 13:50 | disposition home health service (06) ==
LOC: 3 WEST ACU 14:05
PROVIDERS: ADMITTING PHYSICIAN Hospitalist; ATTENDING PHYSICIAN Hospitalist; CONSULT PHYSICIAN Orthopaedic Surgery; EMERGENCY PHYSICIAN Emergency Medicine; FAMILY PHYSICIAN Nurse Practitioner Adult Health
DX: M25.062 Hemarthrosis, left knee (principal); M25.562 Pain in left knee; M17.12 Unilateral primary osteoarthritis, left knee; M79.89 Other specified soft tissue disorders; I10 Essential (primary) hypertension; E11.9 Type 2 diabetes mellitus without complications; X50.1XXA Overexertion from prolonged static or awkward postures, initial encounter; Y93.E9 Activity, other interior property and clothing maintenance; Y92.003 Bedroom of unspecified non-institutional (private) residence as the place of occurrence of the external cause; I48.0 Paroxysmal atrial fibrillation; F41.9 Anxiety disorder, unspecified; M81.0 Age-related osteoporosis without current pathological fracture; M71.22 Synovial cyst of popliteal space [Baker], left knee; F32.A Depression, unspecified; G47.33 Obstructive sleep apnea (adult) (pediatric); Z86.73 Personal history of transient ischemic attack (TIA), and cerebral infarction without residual deficits; Z79.84 Long term (current) use of oral hypoglycemic drugs; Z79.02 Long term (current) use of antithrombotics/antiplatelets
CPT/HCPCS: 71046; 73564; 73721; 80053; 85025; 96374; 97163; 97167; 97530; 99285; G0378

== ENCOUNTER 2024-02-14 06:58 | Emergency (ER) | payer OTHER, SELFPAY ==
[2024-02-14 07:01] VITALS: BP 156/79
--- NOTE | 2024-02-14 08:39 | ED.GENMED ---
History of Present Illness
General
Chief Complaint: Fall
Time Seen by Provider: 02/14/24 08:17
History of Present Illness
History of Present Illness:
83 yo female with history of A-fib on Pradaxa presents to the emergency department for evaluation after a minor fall. Was attempting to get out of bed to use the her bedside commode, slowly lowered herself to the ground due to left knee pain. Has
an ongoing recurrent hemarthrosis of the left knee that causes difficulty ambulating. She reportedly laid supine for approximately 5 to 6 hours before her daughter was aware of the fall and able to help her up. She is currently complaining of
diffuse pain specifically to the mid back. Denies any head strike or loss of consciousness.
Past History
Past History
ED Past Medical History: HTN and NIDDM
ED Past Surgical History: None
Social History
Personal:
Living: with family
Review of Systems
Review of Systems
Allergies reviewed?: Yes
All Other Systems: ROS reviewed and negative except as documented in HPI and ROS
Phy Exam
Physical Exam
Physical Exam:
GEN: Well appearing, NAD, WDWN
HEENT: Oral mucosa moist, no scleral icterus
Cardiac: Regular rate
Lung: No respiratory distress, no tachypnea
MSK: Midline thoracic spine tenderness diffusely, no paraspinous muscle tenderness. No obvious pressure injuries noted on exam. Moderate to large left knee effusion
Skin: Good color, no pallor or jaundice, no rashes
Neuro: AO x3, moves all extremities freely
Psych: Calm, cooperative
Course
Orders/Labs/Results
Orders:
Orders
02/14/24 07:06
EKG [Electrocardiogram (*1)] Urgent
Reason for Study: Vertigo / Dizzy
02/14/24 07:07
EKG- Treatment ONCE
02/14/24 08:33
CR Thoracic Spine 3 Views Urgent
Comment:
Reason For Exam: fall, mid back pain
02/14/24 09:14
CPK [Creatine Phosphokinase] Urgent
Comprehensive Metabolic Panel Urgent
02/14/24 09:15
Complete Blood Count/With Diff Urgent
02/14/24 09:58
Pt Eval And Treat Urgent
Treatment: L knee hemarthrosis, WBAT
Activity Level: As Tolerated
02/14/24 10:38
Case Management Consult ONCE
Case Management Consult: VN/Home Care
Comment: home PT
Abnormal Lab Results
02/14/24 02/14/24
09:14 09:15
WBC 12.1 H 10^3/uL
(4.8-10.8)
MPV 10.9 H fL
(7.4-10.4)
Absolute Neuts (auto) 9.8 H 10^3/uL
(1.4-6.5)
Absolute Lymphs (auto) 0.9 L 10^3/uL
(1.2-3.4)
Absolute Monos (auto) 1.1 H 10^3/uL
(0.1-0.6)
Neutrophils % 81.5 H %
(42.2-75.2)
Lymphocytes % 7.7 L %
(20.5-51.1)
Monocytes % 9.4 H %
(1.7-9.3)
Glucose 223 H mg/dl
(70-99)
Total Bilirubin 1.6 H mg/dl
(0.2-1.3)
AST 44 H U/L
(14-36)
Total Protein 6.1 L g/dl
(6.3-8.2)
02/14/24 09:15
02/14/24 09:14
Vital Signs
Initial and Last Documented VS:
Initial Vital Signs
Temp Pulse Resp BP Pulse Ox
97.5 F 81 16 156/79 96
02/14/24 07:01 02/14/24 07:01 02/14/24 07:01 02/14/24 07:01 02/14/24 07:01
Last Documented Vital Signs
Temp Pulse Resp BP Pulse Ox
97.5 F 80 20 154/71 96
02/14/24 07:01 02/14/24 12:10 02/14/24 12:10 02/14/24 12:10 02/14/24 12:10
MDM/Problems Addressed
MDM/Problems Addressed:
I did attempt to aspirate the hemarthrosis however despite ultrasound-guided confirmation of intra-articular placement I was unsuccessful aspirating blood likely indicating that it is coagulated. Her workup is reassuring. She was evaluated by
physical therapy and will be referred as an outpatient to in-home physical therapy resources. Her daughter will stay with her at her apartment
*Critical Care Note
Total Time (30-74mins, 75-104mins- exclusive of procedures): Not Applicable
ED Attending Note
-
Portions of this chart may have been created with voice recognition software.� Occasional wrong word or��sound alike� substitutions may have occurred due to the inherent limitations of voice recognition software.
Discharge Plan
Departure
Patient Disposition: Home (Routine Discharge)
Date of Disposition: 02/14/24
Time of Disposition: 10:38
Patient with high blood pressure during this ER visit?: No
Discharge Problem:
Fall, Hemarthrosis of knee, left
Instructions: Preventing falls in adults
Prescriptions:
No Action
multivitamin 1 EACH tablet
0.5 ea PO DAILY
atorvastatin 20 mg Tablet
20 mg PO QPM
duloxetine 30 mg Capsule,Delayed Release(Dr/Ec)
30 mg PO DAILY
dabigatran etexilate [Pradaxa] 150 mg Capsule
150 mg PO BID
glipizide 5 mg Tablet
2.5 mg PO BID
acetaminophen 325 mg Tablet
650 mg PO Q4HPRN PRN (Reason: mild pain) 14 Days Qty: 30 0RF
tramadol 50 mg Tablet
50 mg PO BIDPRN PRN (Reason: SEVERE PAIN) 3 Days Qty: 6 0RF
Referrals:
Aisha Alcantar CRNP [Family Provider] -
Zaid Rico MD [Active] -
Interventions
Interventions:
*Risk Screen - Suicide Last Done: 02/14/24 07:01
*General Assessment Last Done: 02/14/24 07:01
*Neglect/Abuse Screening Last Done: 02/14/24 07:01
*ED COVID-19 Vaccine History Last Done: 02/14/24 07:01
*Nursing Disposition Last Done: 02/14/24 12:44
ED-Musculoskeletal Assessment Last Done: 02/14/24 09:00
ED- Neurological Assessment Last Done: 02/14/24 09:00
ED-Skin Assessment Last Done: 02/14/24 09:00
Discharge Date and Time
Discharge Date/Time: 02/14/24 12:10
Print Language: ICELANDIC
[2024-02-14 09:35] LABS: % Basophils 0.8 % (0-2); % Eosinophils 0.3 % (0-6); % Immature Granulocytes 0.3 % (0-0.5); % Lymphocytes 7.7 % (20.5-51.1); % Monocytes 9.4 % (1.7-9.3); % Neutrophils 81.5 % (42.2-75.2); Absolute Basophils 0.1 10^3/uL (0-0.2); Absolute Lymphocytes 0.9 10^3/uL (1.2-3.4); Absolute Monocytes 1.1 10^3/uL (0.1-0.6); Absolute Neutrophils 9.8 10^3/uL (1.4-6.5); Hematocrit 39.5 % (37.0-47.0); Hemoglobin 13.4 g/dL (12.0-16.0); Mean Corp Hgb Conc. 33.9 g/dL (33.0-37.0); Mean Corpuscular Volume 88.6 fL (81.0-99.0); Mean Platelet Volume 10.9 fL (7.4-10.4); Nucleated Red Blood Cells % 0 %; Platelet Count 172 10^3/uL (130-400); Red Blood Cell Count 4.46 10^6/uL (4.20-5.40); Red Cell Dist. Width 13.1 % (11.5-14.5); White Blood Cell Count 12.1 10^3/uL (4.8-10.8)
[2024-02-14 09:36] LABS: ALT (SGPT) 35 U/L (0-35); AST (SGOT) 44 U/L (14-36); Albumin 3.6 g/dl (3.5-5.0); Alkaline Phosphatase 80 U/L (38-126); Blood Urea Nitrogen 17 mg/dl (7-17); Calcium 8.7 mg/dl (8.4-10.2); Carbon Dioxide 29 mmol/L (22-30); Chloride 102 mmol/L (98-107); Creatine Phosphokinase 84 U/L (30-135); Glucose 223 mg/dl (70-99); Potassium 3.7 mmol/L (3.5-5.1); Sodium 138 mmol/L (135-145); Total Bilirubin 1.6 mg/dl (0.2-1.3); Total Protein 6.1 g/dl (6.3-8.2); eGFR > 60.00
[2024-02-14 09:51] VITALS: BP 154/61; BMI 28.8
[2024-02-14 10:46] VITALS: BP 154/61; PULSE 86; O2SAT 97
--- NOTE | 2024-02-14 10:50 | CM ---
ED CM consult for VN
Pt resides alone at [facility]
Referral made to [facility] per pt request
Dtr will be staying with her 01/09
They declined private duty resources
Pt has DMEs at home already
Discharge Disposition- home with VN & 01/09 family support-family transport
[2024-02-14 12:10] VITALS: BP 154/71
== END 2024-02-14 12:10 | disposition home or self-care (01) ==
LOC: EMR 06:58
PROVIDERS: Physician Assistant; EMERGENCY PHYSICIAN Emergency Medicine; FAMILY PHYSICIAN Nurse Practitioner Adult Health
DX: M25.062 Hemarthrosis, left knee (principal); W19.XXXA Unspecified fall, initial encounter; I10 Essential (primary) hypertension
CPT/HCPCS: 99285; 20610; 72072; 80053; 82550; 85025; 93005

== ENCOUNTER → 2024-11-17 10:07 | Outpatient (REF) | payer OTHER, SELFPAY ==
[2024-11-17 11:51] LABS: Hematocrit 44.9 % (37.0-47.0); Hemoglobin 15.2 g/dL (12.0-16.0); Mean Corp Hgb Conc. 33.9 g/dL (33.0-37.0); Mean Corpuscular Volume 87.7 fL (81.0-99.0); Nucleated Red Blood Cells % 0 %; Platelet Count 175 10^3/uL (130-400); Red Cell Dist. Width 13.2 % (11.5-14.5)
[2024-11-17 12:17] LABS: ALT (SGPT) 46 U/L (0-35); AST (SGOT) 51 U/L (14-36); Albumin 4.2 g/dl (3.5-5.0); Alkaline Phosphatase 80 U/L (38-126); Blood Urea Nitrogen 21 mg/dl (7-17); Calcium 9.4 mg/dl (8.4-10.2); Carbon Dioxide 24 mmol/L (22-30); Chloride 108 mmol/L (98-107); Glucose 140 mg/dl (70-99); Potassium 4.1 mmol/L (3.5-5.1); Sodium 139 mmol/L (135-145); Total Protein 6.9 g/dl (6.3-8.2); eGFR > 60.00
[2024-11-17 12:42] LABS: Glycohemoglobin (HgbA1c) 7.3 % (4.0-5.6)
== END ==
LOC: OLABWIL 10:07
PROVIDERS: ATTENDING PHYSICIAN Nurse Practitioner Adult Health
DX: E11.59 Type 2 diabetes mellitus with other circulatory complications (principal)
CPT/HCPCS: 36415; 80053; 83036; 85025